=== PATIENT | female | born 1960 | race Caucasian/White ===

== ENCOUNTER 2021-04-22 10:58 | Emergency (ER) | payer MEDICAID, SELFPAY ==
[2021-04-22 10:59] VITALS: BP 140/85; PULSE 98; RESP 14; TEMP 36.4; O2SAT 98
--- NOTE | 2021-04-22 11:28 | CT_ITS ---
STUDY: CT ABDOMEN AND PELVIS WITH CONTRAST REASON FOR EXAM: Female, 60 years old. rectal bleeding, pain RADIATION DOSAGE (If Supplied By Facility): CTDIvol = ( 12.93 ) mGy, DLP = ( 301.45 ) mGycm TECHNIQUE: Transaxial images were obtained from the dome of the diaphragm to the symphysis pubis without oral contrast. IV 100mL Isovue-370 was administered. Sagittal and coronal images were reconstructed. Individualized dose optimization techniques were used for this CT. COMPARISON: None. FINDINGS: The visualized lung bases are unremarkable. The visualized portions of the heart are within normal limits. Normal liver. Normal gallbladder and extrahepatic biliary system. Normal spleen. Normal pancreas. Normal bilateral adrenal glands. Normal right kidney. Normal left kidney. Normal visualized stomach. Normal small intestine. Normal colon. The appendix is visualized and appears normal. Normal abdominal aorta. Normal inferior vena cava. Normal retroperitoneum. Normal urinary bladder. 4 cm oval mass of water attenuation of the right ovary consistent with a physiologic cyst, par ovarian cyst, or cystadenoma. 8 cm oval mass of water attenuation left ovary consistent with a physiologic cyst, par ovarian cyst, or cystadenoma. Normal abdominal wall. Normal osseous structures. CT/Abdomen/Pelvis W IV Cont ONLY IMPRESSION: Cystic masses in both ovaries consistent with physiologic cyst, par ovarian cyst, or cystadenomas. Correlation with pelvic ultrasound may be useful. Electronically Signed: Dennis Dee MD at 12:32 EDT Tel , Service support ,
[2021-04-22 11:36] LABS: Absolute Lymphocyte Count 1.79 X10^3/uL (0.83-4.51); Absolute Neutrophil Count 7.4 X10^3/uL (2.0-7.7); Basophil# 0.06 X10^3/uL; Basophil% 0.6 % (0-1); Eosinophil# 0.07 X10^3/uL; Eosinophils% 0.7 % (0-5); Hematocrit 42.1 % (37-47); Lymphocyte # 1.79 X10^3/ul (0.83-4.51); Lymphocyte % 17.7 % (19-41); Mean Corp Hgb Conc 33.3 g/dL (32-36); Mean Corpuscular Hgb 34.1 pg (27.0-32.0); Mean Corpuscular Volume 102.4 fL (81-99); Mean Platelet Vol. 9.5 fl (6.2-12.0); Monocyte# 0.71 X10^3/uL; NRBC Flagged by Analyzer 0 % (0-5); Neutrophil # 7.43 X10^3/uL (2.7-7.7); Neutrophil % 73.7 % (47-70); Platelet Count 316 K/mm3 (150-450); RBC Distribution Width CV 13.4 % (11.6-14.6); RBC Distribution Width SD 51.5 fl (35.1-43.9); Red Blood Count 4.11 M/mm3 (4.2-5.4); White Blood Count 10.1 K/mm3 (4.4-11.0)
[2021-04-22 11:52] LABS: AST(SGOT) 26 U/L (15-37); Alanine Aminotransfer ALT/SGPT 28 U/L (13-56); Alkaline Phosphatase 83 U/L (45-117); Anion Gap 7 (5-15); BUN 6 mg/dL (7-18); BUN/Creat Ratio 10.7 RATIO (10-20); Calcium,Total 9.2 mg/dL (8.5-10.1); Chloride 99 mmol/L (98-107); Creatinine, Serum 0.56 mg/dL (0.55-1.02); EST Glomerular Filtration Rate 116 mL/min (>60); Est Glom Filt Rate - Afr Amer 140 mL/min (>60); Globulin 3.9 g/dL (2.2-4.2); Glucose 91 mg/dL (74-106); Potassium 3.5 mmol/L (3.5-5.1); Protein, Total 7.9 g/dL (6.4-8.2); Sodium Level 132 mmol/L (136-145)
--- NOTE | 2021-04-22 11:53 | EDS_ITS ---
HPI HPI - GI History of Present Illness Chief Complaint: GI Bleed Informant: patient Narrative Narrative: This patient presents with soft stool and some black stool. She states she has been having irregular bowel movements and soft stools for years. This sounds like it is 5 to 7 years. She gets red blood in the stool at times and she gets black stool at times. She had another episode this morning. She came in. She is not having any notable pain. She denies weight loss. She denies lightheadedness or syncopal. She has not had this evaluated in the past because she has not had insurance. She now has obtained insurance and is p carroll to follow-up. She has never had a colonoscopy. She has never seen a non destructive evaluation manager. There is no history of Crohn's or ulcerative colitis in her family. Nothing seems to make her symptoms better or worse. She is able to eat and drink. She has no history of cancers. No known history of diverticulitis. Patient has no history of prior intra-abdominal surgeries. [facility] Medical History Hypertension Home Medications amlodipine 5 mg PO DAILY 04/22/21 [History Last Taken Unknown] lisinopril-hydrochlorothiazide 1 tab PO DAILY 04/22/21 [History Last Taken Unknown] Allergy/AdvReac Type Severity Reaction Status Date / Time No Known Allergies Allergy Verified 04/22/21 10:59 Social History Smoking Status: Current every day smoker tobacco type: cigarettes ROS ROS ED Constitutional Constitutional ED: Denies chills, fever(s) or weight loss ENT ENT ED: Denies sore throat Cardiovascular Cardiovascular: Denies chest pain or palpitations Respiratory/Chest Respiratory/Chest: Denies cough, dyspnea or dyspnea on exertion Gastrointestinal Gastrointestinal: Reports diarrhea and melena; Denies abdominal pain, constipation, nausea or vomiting Genitourinary Genitourinary ED: Denies dysuria or hematuria Musculoskeletal Musculoskeletal: Denies back pain Integumentary Denies rash Neurologic Neurologic: Denies headache(s) or weakness Endocrine Endocrinology: Denies polydipsia or polyuria Hematologic/Lymphatic Hematologic/Lymphatic: Denies easy bleeding or easy bruising Allergic/Immunologic Allergic/Immunologic ED: Denies urticaria EXAM Physical Exam Const Vital Signs: 04/22/21 10:59 04/22/21 13:12 Temperature 97.6 F L Temperature Source Temporal Pulse Rate 98 91 Respiratory Rate 14 16 Blood Pressure 140/85 H 147/86 H Blood Pressure Mean 103 106 Pulse Ox 98 99 Oxygen Delivery Method Room Air Room Air MDM MDM MDM Narrative Medical decision making narrative: Blood work shows no anemia. Electrolytes liver function is overall normal. CT does not show any acute process. There are some cystic masses of the ovaries but this can be followed as an outpatient. Patient is asymptomatic. She is not lightheaded. I think we can get her home since she has had the symptoms off and on for years. She states every day she has 10 or more bowel movements and that is normal for her. She does have a follow-up appointment already set for 01 May. I have encouraged her that she really does need to get a colonoscopy. Lab Data Attestation: I reviewed the patient's lab results. Labs: Laboratory Results - last 24 hr 04/22/21 04/22/21 11:12 11:12 WBC 10.1 RBC 4.11 L Hgb 14.0 Hct 42.1 MCV 102.4 H MCH 34.1 H MCHC 33.3 RDW Std Deviation 51.5 H RDW Coeff of Kaylen 13.4 Plt Count 316 MPV 9.5 Immature Gran % (Auto) 0.300 Neut % (Auto) 73.7 H Lymph % (Auto) 17.7 L Cowley % (Auto) 7.0 Eos % (Auto) 0.7 Baso % (Auto) 0.6 Absolute Neuts (auto) 7.4 Absolute Lymphs (auto) 1.79 Nucleated RBC % 0 Sodium 132 L Potassium 3.5 Chloride 99 Carbon Dioxide 26.0 Anion Gap 7 BUN 6 L Creatinine 0.56 Estim Creat Clear Calc 85.60 Est GFR (MDRD) Af Amer 140 Est GFR (MDRD) Non-Af 116 BUN/Creatinine Ratio 10.7 Glucose 91 Calcium 9.2 Total Bilirubin 0.40 AST 26 ALT 28 Alkaline Phosphatase 83 Total Protein 7.9 Albumin 4.0 Globulin 3.9 Albumin/Globulin Ratio 1.0 Radiography Diagnostic Testing: Radiology Impression Abdomen/Pelvis CT 04/22/21 11:28 IMPRESSION: Cystic masses in both ovaries consistent with physiologic cyst, par ovarian cyst, or cystadenomas. Correlation with pelvic ultrasound may be useful. Electronically Signed: Dennis Dee MD at 12:32 EDT Tel , Service support , Discharge Plan Triage Chief Complaint: GI Bleed ED Provider: Abhijit Moreno Dx/Rx/DC Orders Clinical Impression: Chronic diarrhea, Blood in stool Prescriptions: No Action amlodipine 5 mg tablet 5 mg PO DAILY RF: 0 lisinopril-hydrochlorothiazide 20-25 mg tablet 1 tab PO DAILY RF: 0 Primary Care Provider: Brody Hill Referrals: Brody Hill MD [Primary Care Provider] - As soon as possible Disposition Disposition: Home, Self Care
[2021-04-22 13:12] VITALS: BP 147/86; PULSE 91; RESP 16; O2SAT 99
== END 2021-04-22 14:12 | disposition home or self-care (01) ==
PROVIDERS: Emergency Provider Emergency Medicine; PCP Family Medicine
DX: R19.7 Diarrhea, unspecified (principal); N83.201 Unspecified ovarian cyst, right side; N83.202 Unspecified ovarian cyst, left side; I10 Essential (primary) hypertension; K92.1 Melena; F17.210 Nicotine dependence, cigarettes, uncomplicated
CPT/HCPCS: 74177; 80053; 85025; 99284; J7040; Q9967; A4216

== ENCOUNTER 2021-05-24 22:36 | Emergency (ER) | payer MEDICAID, SELFPAY ==
[2021-05-24 22:38] VITALS: BP 137/85; PULSE 88; RESP 16; TEMP 36.4; O2SAT 99; BMI 21.3
[2021-05-24 23:43] LABS: Hematocrit 38.4 % (37-47); Hemoglobin 13.5 g/dL (12.0-15.0); Mean Corp Hgb Conc 35.2 g/dL (32-36); Mean Corpuscular Hgb 34.3 pg (27.0-32.0); Mean Corpuscular Volume 97.5 fL (81-99); Platelet Count 302 K/mm3 (150-450); RBC Distribution Width CV 11.8 % (11.6-14.6); RBC Distribution Width SD 42.3 fl (35.1-43.9); Red Blood Count 3.94 M/mm3 (4.2-5.4); White Blood Count 9.9 K/mm3 (4.4-11.0)
[2021-05-24 23:53] LABS: Anion Gap 12 (5-15); BUN 2 mg/dL (7-18); BUN/Creat Ratio 5.4 RATIO (10-20); Calcium,Total 9.1 mg/dL (8.5-10.1); Chloride 84 mmol/L (98-107); Creatinine, Serum 0.37 mg/dL (0.55-1.02); EST Glomerular Filtration Rate 188 mL/min (>60); Est Glom Filt Rate - Afr Amer 227 mL/min (>60); Estimated Creatinine Clearance 126.28 ml/min; Glucose 104 mg/dL (74-106); Potassium 2.8 mmol/L (3.5-5.1); Sodium Level 121 mmol/L (136-145)
[2021-05-24] MEDS: 0.9% Normal Saline 1,000 ML 1000 ML IV (23:56)
--- NOTE | 2021-05-25 00:38 | EDS_ITS ---
HPI History of Present Illness Chief Complaint: Dizziness Detail of Chief Complaint: Patient definition of dizziness is lightheadedness. Informant: patient Onset/Context/Timing Onset: Today and Hours Timing: Intermittent Quality: Lightheadedness Location: Residents Current Severity: 0/10 Maximum Severity: Severe Worsened by: Upright position Relieved by: Supine position Associated Symptoms Associated Symptoms: Vague visual disturbance when she becomes lightheaded Narrative Narrative: Patient is a 60-year-old woman who is scheduled for colonoscopy because of blood in stool. She reported black/maroon stool. She is doing a colonoscopy prep. She believes she is dehydrated. She was told by paramedics she is not dehydrated. She complains of thirst and dry mouth. She reports orthostatic symptoms. She denies headache. She denies double vision or loss of vision. Nuys ringing in ears or decreased hearing. She denies rhinorrhea, congestion or postnasal drainage. Denies sore throat. She denies cardiac or respiratory symptoms. She does report nausea without vomiting. She states she has diarrhea because she is doing the bowel prep. She is not on an anticoagulant. She does have history of hypertension. She denies paresthesia, anesthesia or motor weakness. Prior similar symptoms: No Recent Illness/Hospitalization: Yes PFSH PFS Medical History History of breast cancer Hypertension Home Medications amlodipine 5 mg PO DAILY 04/22/21 [History Last Taken Unknown] lisinopril-hydrochlorothiazide 1 tab PO DAILY 04/22/21 [History Last Taken Unkn own] albuterol sulfate 2 puff INHALATION Q6H PRN PRN 05/24/21 [History Last Taken Unknown] Allergy/AdvReac Type Severity Reaction Status Date / Time No Known Allergies Allergy Verified 05/24/21 22:37 Surgical History History of ankle surgery History of thumb surgery Social History (Updated 05/25/21 @ 00:[address] Jm Torres MD) household members: none Smoking Status: Current every day smoker tobacco type: cigarettes alcohol intake: current alcohol intake frequency: holidays/special occasions only substance use type: does not use ROS ROS ED Constitutional Constitutional ED: Denies chills, fever(s), subjective, sweats or weight loss Eyes Eyes: Reports blurry vision; Denies change in vision or diplopia ENT ENT ED: Denies ear pain, rhinorrhea or sore throat Cardiovascular Cardiovascular: Reports palpitations; Denies chest pain, orthopnea or racing heartbeat Respiratory/Chest Respiratory/Chest: Denies cough, dyspnea, dyspnea on exertion or orthopnea Gastrointestinal Gastrointestinal: Reports abdominal pain, diarrhea and nausea; Denies constipation or vomiting Genitourinary Genitourinary ED: Reports other Details: Patient reports decreased urine output ; Denies dysuria, hematuria or urinary frequency Musculoskeletal Musculoskeletal: Denies arthralgias, back pain, myalgias, neck pain or other Integumentary Denies rash Neurologic Neurologic: Reports weakness; Denies headache(s) or paresthesias Allergic/Immunologic Allergic/Immunologic ED: Denies mouth swelling, tongue swelling or urticaria EXAM Physical Exam Const Vital Signs: 05/24/21 22:38 05/24/21 23:55 05/25/21 01:27 Temperature 97.5 F L Temperature Source Temporal Pulse Rate 88 76 Respiratory Rate 16 12 Respiratory Effort Normal Respiratory Pattern Normal Blood Pressure 137/85 H 102/84 H Blood Pressure Mean 102 90 Pulse Ox 99 96 Oxygen Delivery Method Room Air Room Air Positive well nourished and well developed General Appearance ED: well developed and NAD HEENT Reports TM's clear and dry mucous membranes HEENT Narrative: Head is atraumatic normocephalic. Ears normal. Nares patent. Tympanic Membrane ED: Yes TM's clear Mouth ED: Yes dry mucous membranes Mouth: dry mucous membranes Eyes PERRL and EOMs intact bilaterally Eyes Narrative: Poor dentition. General Eye ED: Negative for pale conjunctiva or scleral icterus Neck no lymphadenopathy, supple and no JVD Chest Wall inspection of chest normal Resp normal respiratory effort and clear to auscultation bilaterally Cardio regular rhythm, S1 normal heart sound, S2 normal heart sound and no murmurs Rate: tachycardic GI non-tender, non-distended and no masses Inspection: Negative for abdominal distention Auscultation: hyperactive bowel sounds Palpation: soft; Negative for tender, guarding or rebound tenderness present Back/Spine no CVA tenderness Cervical Spine: Negative for cervical spine tenderness Thoracic Spine / Upper Back: Negative for thoracic spinal tenderness or paraspinal muscle tenderness Extremity normal to inspection General Extremety ED: Negative for edema or tenderness General Extremity: Negative for edema Neuro oriented x3, CN's II-XII intact bilaterally and no sensory deficits noted Sensorium / Orientation: alert Motor Exam: strength 5/5 throughout Psych mental status grossly normal Skin no rashes or lesions noted, no wounds and No skin turgor normal MDM MDM MDM Narrative Medical decision making narrative: Clinically patient is dehydrated feel this to be secondary to bowel prep. IV fluids were ordered. Will assess electrolytes and specifically potassium with the amount of diarrhea she is reporting. Because she reports black stool and history of GI bleed CBC was obtained without differential. Patient was reassessed at 0140. She feels markedly better. Heart rate is in the 70s from 110-120. When in an upright position. Lab Data Attestation: I reviewed the patient's lab results. Lab results narrative: CBC without differential is normal. Basic metabolic panels are marked for sodium 121. Potassium is 2.8. This may contribute to her symptoms. We will need to review prior records. Patient is on hydrochlorothiazide. This is the most likely cause for her hyponatremia hypochloremia. She was instructed to follow-up with her doctor and will need this changed. Labs: Laboratory Results - last 24 hr 05/24/21 05/24/21 23:00 23:00 WBC 9.9 RBC 3.94 L Hgb 13.5 Hct 38.4 MCV 97.5 MCH 34.3 H MCHC 35.2 RDW Std Deviation 42.3 RDW Coeff of Kaylen 11.8 Plt Count 302 MPV 10.0 Sodium 121 L Potassium 2.8 L Chloride 84 L Carbon Dioxide 25.0 Anion Gap 12 BUN 2 L Creatinine 0.37 L Estim Creat Clear Calc 126.28 Est GFR (MDRD) Af Amer 227 Est GFR (MDRD) Non-Af 188 BUN/Creatinine Ratio 5.4 L Glucose 104 Calcium 9.1 Discharge Plan Triage Chief Complaint: Dizziness ED Provider: Jm Torres Dx/Rx/DC Orders Clinical Impression: Dehydration, moderate, Orthostatic hypotension Instructions: ED Dehydration (Adult), ED Hypotension, Orthostatic Prescriptions: No Action amlodipine 5 mg tablet 5 mg PO DAILY RF: 0 lisinopril-hydrochlorothiazide 20-25 mg tablet 1 tab PO DAILY RF: 0 albuterol sulfate 90 mcg/actuation HFA aerosol inhaler 2 puff INHALATION Q6H PRN PRN (Reason: SOB) RF: 0 Primary Care Provider: Brody Hill Referrals: Brody Hill MD [Primary Care Provider] - 3-5 Days (Sodium is 121 and chloride is 84. This is due to her hydrochlorothiazide. This should be changed or reduced.) Activity Restrictions/Additional Instructions: You need to follow-up with Dr. Hill. Your sodium and chloride are low because you are on hydrochlorothiazide for your blood pressure. This is a known adverse problem with hydrochlorothiazide. The dose will need to be reduced or your medicines will need to be changed. Disposition Disposition: Home, Self Care
[2021-05-25 01:27] VITALS: BP 102/84; PULSE 76; RESP 12; O2SAT 96
[2021-05-25 02:03] VITALS: BP 128/80
== END 2021-05-25 02:04 | disposition home or self-care (01) ==
PROVIDERS: Emergency Provider Emergency Medicine; PCP Family Medicine
DX: I95.1 Orthostatic hypotension (principal); E86.0 Dehydration; F17.210 Nicotine dependence, cigarettes, uncomplicated; I10 Essential (primary) hypertension; Z85.3 Personal history of malignant neoplasm of breast
CPT/HCPCS: 80048; 85027; 96360; 99285; A4216

== ENCOUNTER 2021-08-07 06:18 | Day surgery (SDC) | payer MEDICAID, SELFPAY ==
--- NOTE | 2021-08-07 | COLBX_PTH ---
PATIENT: MAR TROY LOC: EN U#:[id number] AGE/SX: 61/F ROOM: RE08/07/[address]: Dr. Alan Francisco DO : 1960 BED: DIS: 08/07/2021 SPEC #: [id number] RECD: 08/07/21 09:14 STATUS: LANE REArsen #: [id number] FAN: 08/07/21 00:[address]: Alan Francisco DEPT: SURGICAL PATHOLOGY RECD BY: Brett Velez ENTERED: 08/07/21 13:26 SP TYPE: COLON BX OT DR: Dr. Brody Hill MD Tissues: A - Sigmoid colon biopsy B - Sigmoid colon biopsy Procedures: Trichrome (control) Special Stain Group II Surgery Specimen Level IV HEADER OPERATION: Colonoscopy (MAC) PRE-OP DIAGNOSIS: History colonic polyps TISSUE SUBMITTED: A ? Biopsy of sigmoid colon, B ? Biopsy of tattooed area of sigmoid colon MICROSCOPIC DIAGNOSIS A. Sigmoid colon, biopsy: Consistent with lymphocytic (microscopic) colitis. See comment. B. Tattooed area of sigmoid colon, biopsy: Consistent with lymphocytic (microscopic) colitis. Focal acute colitis. See comment. SJ:vonda 08/08/2021 COMMENT A & B. Trichrome stain with matched control is used in the evaluation of the specimens and does not show any significant thickening of collagen band. Correlation with clinical, endoscopic findings and appropriate follow up are necessary. MICROSCOPIC DESCRIPTION Slides are reviewed. GROSS DESCRIPTION A - Received in fixative is one container labeled with the patient's name and designated biopsy of sigmoid colon. The specimen consists of multiple irregular fragments of light laughlin soft tissue that in aggregate measure 1 x 0.3 x 0.1 cm. The specimen is totally submitted in one cassette. B - Received in fixative is one container labeled with the patient's name and designated tattooed area of sigmoid colon. The specimen consists of multiple irregular fragments of light laughlin soft tissue that in aggregate measure 1 x 0.2 x 0.1 cm. The specimen is totally submitted in one cassette. / AM:vonda 08/07/21 TC:3 CPT: 88865 x2, 81931 x2
[2021-08-07 06:57] VITALS: BP 115/71; PULSE 84; RESP 16; TEMP 37.6; O2SAT 100; BMI 19.3
[2021-08-07] MEDS: Lactated Ringers 1,000 ML 100 ML IV (07:12)
--- NOTE | 2021-08-07 07:32 | PCM.HP.BLA ---
History and Physical Date of Admission: 08/07/21 [facility] [id number] [place] [address] OFFICE VISITDate of Service: 07/13/21 MR#:[id number]:[id number]: MAR TROYep #:[id number]:1960 Provider:Alan Friend, DOAge/Sex: 60/F [place] [email or web address] Intake Vital Signs 07/13/21 14:41 Height 5 ft 2 in Weight: 109 lb 8 oz BMI 20.0 Intake Visit Reasons: ADENOMATOUS POLYP OF SIGMOID COLON Allergies No Known Allergies Allergy (Verified 05/24/21 22:37) [facility] Medical History History of breast cancer Hypertension Surgical History History of ankle surgery History of thumb surgery Social History (Updated 05/25/21 @ 00:[address] Jm Torres MD) household members: none Smoking Status: Current every day smoker tobacco type: cigarettes alcohol intake: current alcohol intake frequency: holidays/special occasions only substance use type: does not use HPI HPI Details: MAR TROY, is a 60 F who presents to the office today for further evaluation of a colonoscopy. She recently had a colonoscopy approximately a month ago. Initially when she prep for the colonoscopy she became very dehydrated and had nausea and vomiting which required her to go to the hospital. She went to the hospital and had to get IV fluids and potassium replacement. She eventually had another prep which was GoLYTELY and the first 1 was MiraLAX with stool softeners. She was able to tolerate the GoLYTELY better and allowed her to have a full colonoscopy. Dr. Messina referred due to initial coloscopy. Two 9mm polyps removed. One 13mm polyp remaining and is here to see if that can be removed. Had diarrhea with blood has resolved since prior colonoscopy. ROS Eyes Eyes: Positive for blurry vision Resp Respiratory: Positive for wheezing Gastro GI: Positive for bloating and change in bowel habits Musc Musculoskeletal: Positive for muscle cramps, numbness, stiffness, tingling and Arthritis Neuro Neurology: Positive for numbness and tingling Psych Psychiatric: Positive for anxiety Aller/Imm Allergy/Immunologic: Positive for wheezing Quality Reporting Tobacco Screening ([facility] 138) Smoking Status: Current every day smoker Assessment and Plan Assessment and Plan (1) Personal history of colonic polyps: Status: Acute Plan - Dr. Phillips Friend, DO: She will undergo colonoscopy with GoLYTELY prep. I explained to her we might need to lift the polyp in order to get it out. She was explained alternatives, risk, benefits including understanding bleeding, infection, sepsis, perforation, need for emergency to . She will have an ASA 1.
[2021-08-07 08:10] VITALS: BP 107/70; BP 115/71; PULSE 90; RESP 14; TEMP 36.4; O2SAT 100
[2021-08-07 08:15] VITALS: BP 108/69; BP 115/71; PULSE 81; RESP 14; O2SAT 100
[2021-08-07 08:20] VITALS: BP 101/71; BP 115/71; PULSE 82; RESP 16; O2SAT 100
--- NOTE | 2021-08-07 08:24 | OP.COLON_ITS ---
Patient Name: Lilo Gillespie Procedure Date: 08/07/2021 7:35 AM Date of : 1960 Age: 61 Procedure: Colonoscopy Indications: Follow-up for history of adenomatous polyps in the colon Providers: Alan Francisco DO Medicines: Propofol per Anesthesia Patient Profile: This is a 61 year old female. Refer to note in patient chart for documentation of history and physical. Last Colonoscopy: within the past 3 months. Complications: No immediate complications. Procedure: Pre-Anesthesia Assessment: - Prior to the procedure, a History and Physical was performed, and patient medications and allergies were reviewed. The patient is competent. The risks and benefits of the procedure and the sedation options and risks were discussed with the patient. All questions were answered and informed consent was obtained. Patient identification and proposed procedure were verified by the physician in the pre-procedure area. Mental Status Examination: alert but confused. Airway Examination: normal oropharyngeal airway and neck mobility. Respiratory Examination: clear to auscultation. CV Examination: normal. Prophylactic Antibiotics: The patient does not require prophylactic antibiotics. Prior Anticoagulants: The patient has taken no previous anticoagulant or antiplatelet agents. After reviewing the risks and benefits, the patient was deemed in satisfactory condition to undergo the procedure. The anesthesia plan was to use moderate sedation / analgesia (conscious sedation). Immediately prior to administration of medications, the patient was re-assessed for adequacy to receive sedatives. The heart rate, respiratory rate, oxygen saturations, blood pressure, adequacy of pulmonary ventilation, and response to care were monitored throughout the procedure. The physical status of the patient was re-assessed after the procedure. After I obtained informed consent, the scope was passed under direct vision. Throughout the procedure, the patient's blood pressure, pulse, and oxygen saturations were monitored continuously. The pediatric colonoscope was introduced through the anus and advanced to the terminal ileum. The colonoscopy was performed without difficulty. Moderate Sedation: Moderate (conscious) sedation was administered by the endoscopy nurse and supervised by the endoscopist. The following parameters were monitored: oxygen saturation, heart rate, blood pressure, and response to care. Total physician intraservice time was 15 minutes. Scope In: 7:41:27 AM Scope Withdrawal Time 0 hours 12 minutes 26 seconds Scope Out: 8:03:44 AM Total Procedure Duration Time 0 hours 22 minutes 17 seconds Findings: The perianal and digital rectal examinations were normal. There was an area that was previously tattooed that was identified in the sigmoid colon at approximately 20 cm from the anal verge A 10 mm polyp was found in the proximal sigmoid colon. The polyp was sessile. The polyp was removed with a jumbo cold forceps. Resection and retrieval were complete. Verification of patient identification for the specimen was done. Estimated blood loss was minimal. The terminal ileum appeared normal. Internal hemorrhoids were found during retroflexion. The hemorrhoids were Grade I (internal hemorrhoids that do not prolapse). Impression: - One 10 mm polyp in the proximal sigmoid colon, removed with a jumbo cold forceps. Resected and retrieved. - The examined portion of the ileum was normal. - Internal hemorrhoids. Recommendation: - Repeat colonoscopy in 1 year for surveillance. - Return to GI office in 2 weeks. - Continue present medications. Procedure Code(s): --- Professional --- 67463, Colonoscopy, flexible; with biopsy, single or multiple G0500, Moderate sedation services provided by the same physician or other qualified health janitor caretaker performing a gastrointestinal endoscopic service that sedation supports, requiring the presence of an independent trained observer to assist in the monitoring of the patient's level of consciousness and physiological status; initial 15 minutes of intra-service time; patient age 5 years or older (additional time may be reported with 72805, as appropriate) Diagnosis Code(s): --- Professional --- D12.5, Benign neoplasm of sigmoid colon K64.0, First degree hemorrhoids Z86.010, Personal history of colonic polyps CPT copyright 2017 [employer]. All rights reserved. The codes documented in this report are preliminary and upon braille coder review may be revised to meet current compliance requirements. Alan Francisco DO 08/07/2021 8:23:18 AM This report has been signed electronically. Number of Addenda: 1 Note Initiated On: 08/07/2021 7:35 AM Addendum Number: 1 Addendum Date: 06/01/2022 6:16:40 AM MAC was used instead of moderate sedation for this patient. Alan Francisco DO 06/01/2022 6:16:47 AM This report has been signed electronically.
--- NOTE | 2021-08-07 08:24 | OP.CCLET_ITS ---
06/01/2022 Brody Hill [address] [place] [address] Re : Colonoscopy procedure for Lilo Gillespie Dear Dr. Hill This procedure was performed on Saturday, August 07, 2021. My impressions and recommendations are as follows: Impressions : - One 10 mm polyp in the proximal sigmoid colon, removed with a jumbo cold forceps. Resected and retrieved. - The examined portion of the ileum was normal. - Internal hemorrhoids. Recommendations : - Repeat colonoscopy in 1 year for surveillance. - Return to GI office in 2 weeks. - Continue present medications. My findings are described in the full procedure note, which is enclosed. If I can be of further assistance, please feel free to contact me at . Sincerely, Alan Francisco, 08/07/2021 8:23:18 AM This report has been signed electronically.
[2021-08-07 08:25] VITALS: BP 103/72; BP 115/71; PULSE 79; RESP 14; TEMP 36.2; O2SAT 100
[2021-08-07 08:48] VITALS: BP 115/71
== END 2021-08-07 09:10 ==
LOC: EN 06:19 → AC 06:19
PROVIDERS: PCP Family Medicine; Referring Provider Family Medicine; Visit Provider Internal Medicine Gastroenterology
PROC: 0DJD8ZZ Inspection of Lower Intestinal Tract, Via Natural or Artificial Opening Endoscopic (ICD-10-PCS; CPT 45378; principal; 2021-08-07 07:25)
DX: K52.9 Noninfective gastroenteritis and colitis, unspecified (principal); D12.5 Benign neoplasm of sigmoid colon; K64.0 First degree hemorrhoids; Z86.010 Personal history of colon polyps; I10 Essential (primary) hypertension; Z85.3 Personal history of malignant neoplasm of breast; F17.210 Nicotine dependence, cigarettes, uncomplicated
CPT/HCPCS: 45380; 87426; 88305; 88313; C9803; J7120; J2405

== ENCOUNTER 2024-02-26 13:33 | Emergency (ER) | payer SELFPAY ==
[2024-02-26 13:34] VITALS: BP 137/91; PULSE 99; RESP 16; TEMP 36.1; O2SAT 99; BMI 19.3
--- NOTE | 2024-02-26 14:13 | EDS_ITS ---
HPI History of Present Illness Chief Complaint: Back Detail of Chief Complaint: Back pain Informant: patient Narrative Narrative: Patient presents to the emergency department complaint of back pain that she has had for over 2 weeks. Patient states that she fell and injured her back 2 months ago and was found that she had a compression fracture at L1. Her primary care physician then ordered an MRI of her back that showed some spots on her liver as well as her lung. Patient has also had a CAT scan of her chest that was done yesterday with contrast. She does not know the results. She is scheduled to see her primary care physician in 2 days. Patient complains of pain in her mid back, radiates and wraps around to the front of her chest. Pain is positional and worse with palpation. She had been taking tramadol but it made her nauseated so she stopped taking it. She denies fevers or chills or sweats. She denies shortness of breath. Pain is not pleuritic. Patient denies any pain rating down her legs or weakness to the extremities. Patient is a smoker and has history of COPD. [facility] Medical History (Updated 02/26/24 @ 14:[address] Farrukh Lema, ) Wears glasses Cancer Anxiety Alcohol use Arthritis Restless legs Smoker COPD (chronic obstructive pulmonary disease) Shortness of breath on exertion Chronic cough History of edema History of echocardiogram History of stress test History of breast cancer Hypertension Home Medications ?Medication ?Instructions ?Recorded ?Last Taken ?Type amlodipine 5 mg tablet 5 mg PO DAILY 04/22/21 08/07/21 History albuterol sulfate 90 mcg/actuation 2 puff inhalation Q6H PRN PRN SOB 05/24/21 Unknown History aerosol inhaler lisinopril 20 mg tablet 20 mg PO DAILY 08/03/21 08/07/21 History peg 3350-electrolytes 236 240 ml PO Q10M #4,000 mL 08/03/21 Unknown Rx gram-22.74 gram-6.74 gram-5.86 gram solution (Golytely) budesonide 3 mg 3 mg PO QAM #30 ea 08/07/21 Unknown Rx capsule,delayed,extended release ondansetron 4 mg disintegrating 4 mg PO Q8H PRN PRN Nausea 3 days 02/26/24 Unknown Rx tablet #20 tabs oxycodone-acetaminophen 5 mg-325 1 tab PO Q8H PRN pain 3 days #20 02/26/24 Unknown Rx mg tablet (Percocet) tabs Allergy/AdvReac Type Severity Reaction Status Date / Time tramadol AdvReac Severe Nausea/Vom/ Verified 02/26/24 13:37 Diarrhea celecoxib (From Celebrex) AdvReac Intermediate Nausea/Vom/ Verified 02/26/24 13:37 Diarrhea Surgical History Hx of colonoscopy Hx of carpal tunnel repair History of ankle surgery History of thumb surgery Social History (Updated 05/25/21 @ 00:[address] Jm Torres MD) household members: none Smoking Status: Current every day smoker tobacco type: cigarettes alcohol intake: current alcohol intake frequency: holidays/special occasions only substance use type: does not use ROS ROS ED Review of Systems ROS Unobtainable: other Constitutional Constitutional ED: Reports lethargy; Denies chills, fever(s), sweats or weight loss Eyes Eyes: Denies blurry vision, change in vision or diplopia ENT ENT ED: Denies rhinorrhea or sore throat Cardiovascular Cardiovascular: Denies chest pain, orthopnea or racing heartbeat Respiratory/Chest Respiratory/Chest: Denies cough, dyspnea, dyspnea on exertion, orthopnea or sputum Gastrointestinal Gastrointestinal: Denies abdominal pain, diarrhea, nausea or vomiting Genitourinary Genitourinary ED: Denies dysuria, hematuria or urinary frequency Musculoskeletal Musculoskeletal: Reports back pain; Denies arthralgias, myalgias or neck pain Integumentary Denies abscess, Abrasions or rash Neurologic Neurologic: Denies headache(s) or weakness Psychiatric Psychiatric: Denies anxiety, depression or suicidal thoughts Endocrine Endocrinology: Denies polydipsia, polyphagia or polyuria Hematologic/Lymphatic Hematologic/Lymphatic: Denies easy bleeding, easy bruising or lymphadenopathy Allergic/Immunologic Allergic/Immunologic ED: Denies mouth swelling, tongue swelling or urticaria EXAM Physical Exam Const Vital Signs: 02/26/24 13:34 Temperature 96.9 F L Temperature Source Temporal Pulse Rate 99 Respiratory Rate 16 Blood Pressure 137/91 H Blood Pressure Mean 106 Pulse Ox 99 Oxygen Delivery Method Room Air Positive well nourished and well developed General Appearance ED: well developed and NAD HEENT Reports TM's clear and moist mucous membranes normocephalic and atraumatic; Negative for trauma or tenderness Tympanic Membrane ED: Yes TM's clear Eyes PERRL and EOMs intact bilaterally General Eye ED: Negative for pale conjunctiva or scleral icterus Neck no lymphadenopathy, supple and no JVD General: Negative for tenderness Chest Wall inspection of chest normal and palpation of chest normal Chest: Negative for tenderness Resp normal respiratory effort and clear to auscultation bilaterally Effort and Inspection: Negative for respiratory distress or pain with movement Auscultation: Negative for rhonchi, wheezes or diminished lung sounds Cardio regular rate, regular rhythm, S1 normal heart sound, S2 normal heart sound and no murmurs Peripheral Pulses: pulses 2+ throughout GI normal to inspection, nondistended, normoactive bowel sounds, soft to palpation, non-tender, non-distended and no masses Back/Spine no CVA tenderness Back/Spine Narrative: Patient has tenderness palpation over the right mid thoracic paraspinal musculature that seems to reproduce her pain. No significant tenderness in the midline over the thoracic or lumbar spine. She has negative straight leg raises. Deep tendon reflexes plus 2 out of 4 bilaterally at the patella and Achilles. She has normal 5 extension. Normal sensation to light touch. There is no erythema or warmth noted to her back. Extremity normal to inspection General Extremety ED: Negative for edema General Extremity: Negative for edema Neuro oriented x3, CN's II-XII intact bilaterally, no sensory deficits noted and gait normal Sensorium / Orientation: awake, alert, oriented to person, oriented to place and oriented to time Motor Exam: strength 5/5 throughout and strength abnormal Psych mental status grossly normal Skin no rashes or lesions noted and no wounds MDM MDM MDM Narrative Medical decision making narrative: Patient presents with ongoing back pain with history of compression fracture and now found to have possible lesions in her lung and liver. She has remote history of breast cancer. Clinically she looks well. She is looking for some pain management till she can follow-up with her PCP in 2 days. She has had significant imaging including MRI of her back and as well as a CT scan just yesterday of her chest with IV contrast. At this point I do not feel any further imaging is indicated. Patient in agreement. Will give her a dose of morphine and Zofran. Will give her a prescription for Zofran and Percocet for home. Advised to keep her appointment with her primary care physician. Patient's back pain may be some musculoskeletal versus related to bony metastasis from suspected malignancy. Discharge Plan Triage Chief Complaint: Back ED Provider: Farrukh Lema Dx/Rx/DC Orders Clinical Impression: Back pain Instructions: ED Back Pain (Acute or Chronic) Prescriptions: New ondansetron 4 mg tablet,disintegrating 4 mg PO Q8H PRN PRN (Reason: Nausea) 3 Days Qty: 20 0RF oxycodone-acetaminophen [Percocet] 5-325 mg tablet 1 tab PO Q8H PRN (Reason: pain) 3 Days Qty: 20 0RF No Action amlodipine 5 mg tablet 5 mg PO DAILY Patient Comments: take 1 tablet by mouth once daily albuterol sulfate 90 mcg/actuation HFA aerosol inhaler 2 puff INHALATION Q6H PRN PRN (Reason: SOB) Patient Comments: INHALE 2 PUFFS BY MOUTH AND INTO THE LUNGS EVERY 6 HOURS NEEDED FOR WHEEZING/SHORTNESS OF BREATH lisinopril 20 mg tablet 20 mg PO DAILY Patient Comments: take 1 tablet by mouth once daily peg 3350-electrolytes [Golytely] 236-22.74-6.74 -5.86 gram recon soln 240 ml PO Q10M Qty: 4000 0RF Rx Instructions: until fecal effluent is clear budesonide 3 mg capsule,delayed,extend.release 3 mg PO QAM Qty: 30 0RF Primary Care Provider: Brody Hill Referrals: Brody Hill MD [Primary Care Provider] - 2 Days Print Language: Upper Sorbian Disposition Disposition: Home, Self Care
[2024-02-26] MEDS: Morphine 4 MG/ML Syringe IM (14:27)
[2024-02-26] MEDS: Ondansetron ODT 4 MG Tablet PO (14:27)
== END 2024-02-26 14:53 | disposition home or self-care (01) ==
PROVIDERS: Emergency Provider Emergency Medicine; PCP Family Medicine; Visit Provider Emergency Medicine
DX: M54.9 Dorsalgia, unspecified (principal); J44.9 Chronic obstructive pulmonary disease, unspecified; F17.210 Nicotine dependence, cigarettes, uncomplicated; Z79.899 Other long term (current) drug therapy; K76.9 Liver disease, unspecified; R91.1 Solitary pulmonary nodule
CPT/HCPCS: 96372; 99282